=== PATIENT | female | born 1955 | race Caucasian/White ===

== ENCOUNTER → 2021-10-06 | Outpatient (CLI) | payer OTHER ==
[2021-10-06 18:57] LABS: Anion Gap 13.3 mmol/L (10.00-18.00); Carbon Dioxide 23.1 mmol/L (20.0-27.5); Potassium 3.9 mmol/L (3.5-5.5)
[2021-10-06 19:02] LABS: Basophils # (A) 0.04 X 10*3/uL (0.00-0.10); Basophils % (A) 0.5 %; Eosinophils # (A) 0.09 X 10*3/uL (0.04-0.35); Eosinophils % (A) 1.1 %; HCT 42.8 % (37.2-46.3); HGB 14.1 g/dL (12.0-15.0); Lymphocytes # (A) 1.86 X 10*3/uL (0.90-5.00); Lymphocytes % (A) 23.5 %; MCH 32.7 pg (27.0-32.0); MCHC 32.9 g/dL (32.0-37.0); MCV 99.3 fL (80.0-97.0); Mean Platelet Volume 10.7 fL (9.5-12.2); Monocytes # (A) 0.69 X 10*3/uL (0.20-1.00); Monocytes % (A) 8.7 %; Neutrophils # (A) 5.21 X 10*3/uL (1.80-7.70); Neutrophils % (A) 65.8 %; Platelet Count 347 X 10*3/uL (140-440); RBC 4.31 X 10*6/uL (4.10-5.20); RDW 12.7 % (11.5-14.5); WBC 7.92 X 10*3/uL (4.50-10.00)
== END | disposition home or self-care (01) ==
LOC: LABPAT 10:45
PROVIDERS: ATTEND Orthopaedic Surgery Hand Surgery
DX: Z01.812 Encounter for preprocedural laboratory examination (principal); S52.501A Unspecified fracture of the lower end of right radius, initial encounter for closed fracture; Y99.9 Unspecified external cause status
CPT/HCPCS: 36415; 80051; 85025; 93005

== ENCOUNTER → 2021-10-08 | Day surgery (SDC) | payer OTHER ==
[2021-10-07 09:56] VITALS: BMI 24.7
--- NOTE | 2021-10-07 13:12 | P.HPOR ---
History of Present Illness H&P Date: 10/07/21 Chief Complaint: Right distal radius fracture, displaced Age: 66 year Height: 5' Weight: 130 lbs BMI: 25.39 kg/m2 Subjective: This is a 66 year old female that presents today for initial evaluation regarding a right wrist injury that occurred on 10/02/21. She was bowling and slipped and fell on her right wrist. She was seen at an urgent care and placed in a splint. She denies any prior injury to this extremity in the past. She denies any paresthesias. Physical Examination: RUE: AIN/PIN/Radial/Ulnar/Median motor intact. Radial/Ulnar/Median SILT. 2+/4 Radial/Ulnar pulses palpated. 5/5 APB, 5/5 FDI. Bruising, swelling visual deformity of wrist with TTP over distal radius. Imaging: X-Rays of the right wrist demonstrate a displaced intra-articular distal radius fracture with 20 degrees of dorsal angulation and 20% dorsal displacement with loss of volar tilt and radial height. Impression: 1.) Right intra-articular distal radius fracture Plan: Diagnosis and treatment options were discussed with the patient. Due to the displacement and angulation of her fracture pattern on todays exam I recommend surgical intervention in the form of open reduction internal fixation of her right intra-articular distal radius fracture. Risks and benefits of surgery were discussed with the patient including bleeding, damage to surrounding ti ssue, need for further surgery, possible need for hardware removal. The patient wished to go forward with surgery. Preoperative labs and EKG will be obtained and she will be scheduled for surgical intervention in the near future. She is placed in a removable wrist splint that she is to wear until her day of surgery and is to rest, ice and elevate the right upper extremity and to be nonweightbe aring. -Surinder Tejeda DO Orthopedic Hand/Upper Extremity Surgeon Past Medical History Past Medical History: No Reported History Additional Past Medical History / Comment(s): FRACTURED RIGHT WRIST History of Any Multi-Drug Resistant Organisms: None Reported Past Surgical History: Tonsillectomy, Tubal Ligation Past Anesthesia/Blood Transfusion Reactions: No Reported Reaction Smoking Status: Current every day smoker - Past Family History Mother Family Medical History: No Reported History Medications and Allergies Home Medications Medication Instructions Recorded Confirmed Type Brimonidine Tartrate/Timolol 1 drop BOTH EYES BID 10/07/21 10/07/21 History [Combigan 0.2%-0.5% Eye Drops] HYDROcodone/APAP 5-325MG [[place] 1 tab PO Q6HR PRN 10/07/21 10/07/21 History 5-325] Latanoprost/Pf [Latanoprost 0.005% 1 drop BOTH EYES HS 10/07/21 10/07/21 History Eye Drop] Allergies Allergy/AdvReac Type Severity Reaction Status Date / Time No Known Allergies Allergy Verified 10/07/21 09:14 Physical Examination Osteopathic Statement: *. No significant issues noted on an osteopathic structural exam other than those noted in the History and Physical/Consult.
[~2021-10-08] MED LIST: DEXAMETHASONE SOD PHOSPHATE 10 MG/ML 1 ML VIAL ONE; DEXAMETHASONE SOD PHOSPHATE 4 MG/ML 1 ML VIAL IV ONE; HYDROmorphone 0.5 MG/0.5 ML SYRINGE IVP PRN; KETAMINE 10 MG/ML 20 ML VIAL ONE; LACTATED RINGERS 1,000 ML IV SCH; LIDOCAINE 1% (10MG/ML) FOR IV START INTRADERMA ONE; MIDAZOLAM 2 MG/2 ML VIAL IVP ONE; MIDAZOLAM 2 MG/2 ML VIAL ONE; ONDANSETRON 4 MG/2 ML VIAL IVP ONE; PROPOFOL 10 MG/ML 20 ML VIAL IV ONE; ROPIVACAINE 5 MG/ML 30 ML VIAL ONE; fentaNYL (PF) 50 MCG/ML 2 ML AMP IVP ONE; fentaNYL (PF) 50 MCG/ML 2 ML AMP ONE
--- NOTE | 2021-10-08 11:04 | P.ANPRN ---
Procedure Note - Anesthesia - Nerve Block Performed Right Supraclavicular Single Time Out Performed: Yes Date of Procedure: 10/08/21 Procedure Start Time: : Procedure Stop Time: :10 Location of Patient: PreOp Indication: Requested by Surgeon Specifically requested for management of pain by DrAmbrose: Surinder Tejeda Sedation Type: Sedate with meaningful contact maintained Preparation: Sterile Prep Position: Supine Needle Types: Pajunk Needle Gauge: 21 Ultrasound used to visualize needle placement: Yes Ultrasound used to observe medication spread: Yes Injectate: 0.5% Ropivacaine (see comment for volume) (20 ml + dexamethason 10 mg) Blood Aspirated: No Pain Paresthesia on Injection Noted: No Resistance on Injection: Normal Image Stored and Saved: Yes Events: Uneventful and Well Tolerated
[2021-10-08 11:32] VITALS: TEMP 97.2
[2021-10-08 13:03] VITALS: RESP 18
[2021-10-08 13:04] VITALS: BP 122/82; PULSE 67
--- NOTE | 2021-10-08 18:19 | P.OP ---
Date of Procedure: 10/08/21 Preoperative Diagnosis: Right intra-articular distal radius fracture, displaced. Postoperative Diagnosis: Same Procedure(s) Performed: Open reduction internal fixation of right intra-articular distal radius fracture, 3 part. Implants: Luann/Biomet DVR crosslock volar distal radius locking plate, short narrow. Anesthesia: regional Surgeon: Surinder Tejeda Estimated Blood Loss (ml): 5 Pathology: none sent Condition: stable Disposition: PACU Description of Procedure: This is a 66 year old female who sustained a displaced intra-articular distal radius fracture and presents today for open reduction internal fixation of their right distal radius fracture. Risks and benefits of surgery were discussed with the patient including bleeding, damage to surrounding tissue, infection, need for further surgery as well as risks of anesthesia including pulmonary embolism and even and the patient wished to proceed with surgical intervention. The patients was seen in the pre-operative area by myself. Consent and H&P were completed and updated. The correct extremity was marked in the pre-operative area by myself and all other questions were answered. Operative Narrative: The patient was brought to the operating room by the department of anesthesia. They remained on the portable stretcher and a rolling hand table was brought to the side of the operative extremity. Pre-operative time out was performed indicating the correct patient, procedure and laterality. All in the room agreed. Pre-operative antibiotics were given prior to skin incision. The patient was then drifted off to sleep by the department of anesthesia. A nonsterile tourniquet was then applied to the operative extremity and the right upper extremity was then prepped and draped in normal sterile fashion. The operative extremity was the exsanguinated with an esmarch bandage and the tourniquet was inflated to 250mmHg. A longitudinal incision centered over the FCR tendon was made with a 15-blade scalpel. Blunt dissection was taken down to the FCR tendon sheath using Bovie cautery for meticulous hemostasis. The FCR sheath was opened with tenotomy scissors. The floor of the FCR sheath was then incised with a 15-blade scalpel and the FPL tendon and muscle belly was swept bluntly in an ulnar direction to reveal the pronator quadratus. Pronator quadratus was sharply incised with a 15-blade scalpel along the radial border of the distal radius, coming across transversely parallel to the joint at the level of the watershed line, radial artery was identified and protected. Periosteal elevator was then used to elevate the pronator quadratus off the distal radius from a radial to ulnar fashion. Direct visualization of the 3 part fracture was visualized consisting of a radial styloid fragment with radial and dorsal comminution present. A [place] elevator was used to lever the distal piece back into place and free up the fractured fragments. A short/narrow width Luann/biomet crosslock DVR plate was chosen to fit the patients anatomy best. This was placed on the distal radius under direct visualization and the K- wire was placed in the shaft k-wire hole. The fracture was then reduced to the plate distally and a k-wire was placed in the ulnar most k-wire hole in the proximal row. Fluoroscopy was then utilized to confirm correct placement of plate in the radial/ulnar plane and distal k-wire placement was confirmed to be proximal to the subchondral bone on 20 degree elevated lateral view confirming extra-articular screw placement. Amish of radial height, inclination and volar tilt was achieved. The oblong hole was dril led and filled with a cortical screw. The proximal row and radial styloid screw hole was then drilled and filled from ulnar to radial with locking screws. Distal row was then drilled and filled with locking smooth pegs. Attention was then brought to the proximal shaft screws. Proximal crosslocking shaft screws were drilled with a nonlocking screws. The wrist joint was the ranged and full smooth flexion/extension with no crepitus appreciated. Final imaging was taken confirming extra-articular placement of distal screws at DRUJ and radiocarpal joint. The wound was then irrigated. Subcutaneous closure was performed with 3-0 vicryl followed by skin closure with 4-0 nylon suture. Sterile dressing consisting of adaptic, 4x4s, and a volar plaster splint was applied. Tourniquet was let down and the hand had immediate perfusion. The patient was then woken by the department of anesthesia and transferred to PACU in stable condition. The patient was then woken by the department of anesthesia and transferred to PACU in stable condition. Surinder Tejeda D.O. Orthopedic Hand/Upper Extremity Surgeon
== END | disposition home or self-care (01) ==
LOC: OR 07:47
PROVIDERS: ATTEND Orthopaedic Surgery Hand Surgery
DX: S52.571A Other intraarticular fracture of lower end of right radius, initial encounter for closed fracture (principal); W01.0XXA Fall on same level from slipping, tripping and stumbling without subsequent striking against object, initial encounter; Y93.54 Activity, bowling; Z98.51 Tubal ligation status; Z98.890 Other specified postprocedural states; F17.200 Nicotine dependence, unspecified, uncomplicated; Z79.899 Other long term (current) drug therapy; Z79.891 Long term (current) use of opiate analgesic
CPT/HCPCS: 25609; C1713; J2250; J1100 ×2; J2405; J0690; J3010; J2795; J2704

== ENCOUNTER → 2022-05-21 | Outpatient (CLI) | payer MEDICARE, OTHER ==
--- NOTE | 2022-05-21 11:58 | BD ---
EXAMINATION TYPE: Axial Bone Density DATE OF EXAM: 05/21/2022 COMPARISON: NONE CLINICAL HISTORY: 67 year old Female. ICD-10 CODE: Z780 POST KALANI WITHOUT HRT Height: 61 Weight: 128.9 FRAX RISK QUESTIONS: Alcohol (3 or more units per day): no Family History (Parent hip fracture): no Glucocorticoids (More than 3mos): no (Ex: prednisone, prednisolone, methylprednisolone, dexamethasone, and hydrocortisone). History of Fracture in Adulthood: yes Secondary Osteoporosis: 1. Type 1 Diabetes: no 2. Hyperthyroidism: no 3. Menopause before 45: no 4. Malnutrition: no 5. Chronic liver disease: no Rheumatoid Arthritis: no Current Tobacco Use: yes RISK FACTORS HISTORY OF: History of Wrist Fracture: right wrist When: Surgery to Spine/Hip(right/left)/Wrist (right/left): no Family History of Osteoporosis: no Active: yes Diet low in dairy products/other sources of calcium: yes Postmenopausal woman: yes Lost more than 2 inches in height since high school: no MEDICATIONS: Additional History: EXAM MEASUREMENTS: Bone mineral densitometry was performed using the [employer] System. Bone mineral density as measured about the Lumbar spine is: ----- L1-L4(G/cm2): 0.813 T Score Values are as follows: ----- L1: -2.5 ----- L2: -3.4 ----- L3: -3.6 ----- L4: -2.8 ----- L1-L4: -3.1 Bone mineral density : baseline Bone mineral density about the R hip (g/cm2): 0.642 Bone mineral density about the L hip (g/cm2): 0.705 T Score values are as follows: -----R Neck: -2.8 -----L Neck: -2.4 -----R Total: -3.6 -----L Total: -3.2 Bone mineral density : baseline FRAX%s: The graph provided illustrates a 27.3% chance for a major osteoporotic fx and a 11.3% chance for the hips probability for fx in 10 years time. IMPRESSION: Osteoporosis (T Score less than -2.5). There is increased fracture risk and therapy is usually indicated based on age. Re-Screen 1-2 years. NOTE: T-SCORE=SD OF THE YOUNG ADULT MEAN.
--- NOTE | 2022-05-22 19:08 | MM ---
Reason for Exam: Screening (asymptomatic). Patient History: Menarche at age 14. First Full-Term at age 22. Postmenopausal. Risk Values: Lupis 5 year model risk: 1.5%. NCI Lifetime model risk: 5.6%. Tissue Density: There are scattered fibroglandular densities. Findings: Analyzed By CAD. Right breast upper-outer quadrant intramammary lymph node. There is no suspicious group of microcalcifications or new suspicious mass in either breast. Overall Assessment: Benign, BI-RAD 2 Management: Screening Mammogram of both breasts in 1 year. A clinical breast exam by your physician is recommended on an annual basis and results should be correlated with mammographic findings. Electronically signed and approved by: Prosper Pratt DO
== END | disposition home or self-care (01) ==
LOC: RADBDWWP 09:18
PROVIDERS: ATTEND Family Medicine
DX: Z12.31 Encounter for screening mammogram for malignant neoplasm of breast (principal); M81.0 Age-related osteoporosis without current pathological fracture; Z78.0 Asymptomatic menopausal state
CPT/HCPCS: 77063; 77067; 77080

== ENCOUNTER → 2022-07-07 | Outpatient (CLI) | payer MEDICARE, OTHER ==
--- NOTE | 2022-07-07 11:46 | CTL ---
EXAMINATION TYPE: CT Low Dose Lung DATE OF EXAM ORDERED: 07/07/2022 HISTORY: Long-term tobacco use. Lung cancer screening CT DLP: [address] CTDI: 1.9 mGy Automated exposure control for dose reduction was used. SCREENING VISIT: Baseline COMPARISON: None TECHNIQUE: Low dose computed tomography scan was performed through the chest at 1 mm thick sections a nd reconstructed images in multiple planes at 1 mm and [address] DIAGNOSTIC QUALITY: Satisfactory FINDINGS: LUNG NODULES: Present, detailed below: Occasional scattered small nodule. For reference, eThere is 5 x 3 mm medial left upper lobe nodule ax ial image 51. There is 5 mm groundglass nodule right upper lobe axial image 121. No suspicious greate r than 5 mm pulmonary nodules. LUNGS: COPD: Severity: None Fibrosis: Severity: None Lymph nodes: None Other findings: None RIGHT PLEURAL SPACE: Effusion: None Calcification: None Thickening: None Pneumothorax: None LEFT PLEURAL SPACE: Effusion: None Calcification: None Thickening: None Pneumothorax: None HEART: Heart Size: Normal Coronary Calcification: Moderate proximal LAD Pericardial Effusion: None OTHER FINDINGS: Upper abdomen: None Bony thorax: Slight scoliotic curvature Supraclavicular region: None Other: None IMPRESSION: A few scattered small nodules. No significant greater than 5 to [address] LUNG RAD AND CT CHEST RECOMMENDATION: Lung-Rad 2 Benign Appearance or Behavior: Continue annual sc reening with LDCT in 12 months. S Modifier (other clinically significant findings): None
== END | disposition home or self-care (01) ==
LOC: RADCTMAIN 10:55
PROVIDERS: ATTEND Family Medicine
DX: Z12.2 Encounter for screening for malignant neoplasm of respiratory organs (principal); R91.8 Other nonspecific abnormal finding of lung field; Z87.891 Personal history of nicotine dependence
CPT/HCPCS: 71271

== ENCOUNTER → 2023-09-17 | Outpatient (CLI) | payer MEDICARE, OTHER ==
--- NOTE | 2023-09-18 23:34 | CTL ---
EXAMINATION TYPE: CT Low Dose Lung DATE OF EXAM ORDERED: 09/17/2023 HISTORY: Long-term tobacco use. Lung cancer screening CT DLP: 72.[address] CTDI: 1.8 mGy Automated exposure control for dose reduction was used. SCREENING VISIT: First after baseline COMPARISON: Prior study July 07, 2022 TECHNIQUE: Low dose computed tomography scan was performed through the chest at 1 mm thick sections a nd reconstructed images in multiple planes at 1 mm and [address] DIAGNOSTIC QUALITY: Satisfactory FINDINGS: FINDINGS: LUNG NODULES: Present, detailed below: Occasional scattered small nodule redemonstrated. For reference, There is stable 5 x 3 mm medial left upper lobe nodule axial image 73. There is stable 4 mm groundglass nodule right upper lobe axial aidee ge 145. No suspicious new or enlarging greater than 5 mm pulmonary nodules. LUNGS: COPD: Severity: None Fibrosis: Severity: None Lymph nodes: None Other findings: None RIGHT PLEURAL SPACE: Effusion: None Calcification: None Thickening: None Pneumothorax: None LEFT PLEURAL SPACE: Effusion: None Calcification: None Thickening: None Pneumothorax: None HEART: Heart Size: Normal Coronary Calcification: Mild to Moderate proximal LAD Pericardial Effusion: None OTHER FINDINGS: Upper abdomen: None Bony thorax: None Supraclavicular region: None Other: None IMPRESSION: A few scattered small nodules are stable. No significant New or enlarging greater than 5 to [address] LUNG RAD AND [address] CHEST RECOMMENDATION: Lung-Rad 2 Benign Appearance or Behavior: Continue annual sc reening with LDCT in 12 months. S Modifier (other clinically significant findings): None
--- NOTE | 2023-09-21 10:22 | MM ---
Reason for Exam: Screening (asymptomatic). Last mammogram was performed 1 year(s) and 4 month(s) ago. Patient History: Menarche at age 14. First Full-Term at age 22. Postmenopausal. Risk Values: Lupis 5 year model risk: 1.5%. NCI Lifetime model risk: 5.4%. Prior Study Comparison: 05/21/2022 Bilateral MG 3D screening mammo w/cad, [facility]. Tissue Density: There are scattered fibroglandular densities. Findings: Analyzed By CAD. Right breast biopsy clip. There is no suspicious group of microcalcifications or new suspicious mass. Benign-appearing calcifications bilaterally. Overall Assessment: Benign, BI-RAD 2 Management: Screening Mammogram of both breasts in [address] [facility] will attempt to contact patient to return for supplemental views and ultrasound if indicated. Patient should continue monthly self-breast exams. A clinical breast exam by your physician is recommended on an annual basis. This exam should not preclude additional follow-up of suspicious palpable abnormalities. Note on Lupis scores and lifetime risk: 1. A Lupis score greater than 3% is considered moderate risk. If this is the case, consider specialist referral to assess eligibility for a risk reducing agent. 2. If overall lifetime risk for the development of breast cancer is 20% or higher, the patient may qualify for future screening with alternating mammogram and breast MRI. Electronically signed and approved by: Prosper Pratt DO
== END | disposition home or self-care (01) ==
LOC: RADMAMWWP 14:41
PROVIDERS: ATTEND Family Medicine
DX: Z12.31 Encounter for screening mammogram for malignant neoplasm of breast (principal); R91.8 Other nonspecific abnormal finding of lung field; Z87.891 Personal history of nicotine dependence; Z78.0 Asymptomatic menopausal state
CPT/HCPCS: 71271; 77063; 77067

== ENCOUNTER → 2024-11-24 | Outpatient (CLI) | payer MEDICARE, OTHER ==
--- NOTE | 2024-11-24 10:33 | CTL ---
EXAMINATION TYPE: CT Low Dose Lung DATE OF EXAM: 11/24/2024 10:20 AM COMPARISON: 09/17/2023 CLINICAL INDICATION: Female, 69 years old with history of Z12.2 SCREENING, HISTORY OF SMOKER, History of tobacco use. TECHNIQUE: Low Dose CT Lung Screening, Low dose computed tomography scan was performed through the est at 1 millimeter thick sections and reconstructed images in the coronal plane at 1 mm thick sectio ns. IV CONTRAST USED: None. SCREENING VISIT: First visit CT DLP: 59 mGycm, Automated exposure control for dose reduction was used. CT CTDI: 1.64 mGy FINDINGS: CT DIAGNOSTIC QUALITY: Satisfactory LUNG NODULES: There are few scattered sub-5 mm nodule seen unchanged from prior study. LUNGS: COPD: Severity: Mild Fibrosis: Severity:None Lymph nodes: None Other findings: None RIGHT PLEURAL SPACE: Effusion: None Calcification: None Thickening: None Pneumothorax: None LEFT PLEURAL SPACE: Effusion: None Calcification: None Thickening: None Pneumothorax: None HEART: * Size within normal limits. * No significant coronary artery calcifications. OTHER FINDINGS: Upper abdomen: No significant abnormality Bony thorax: Degenerative changes Supraclavicular region: No significant abnormalityOther: No significant abnormalityI IMPRESSION: 1. No clinically significant pulmonary nodules. 2. Mild emphysema. CT LUNG RAD AND CT CHEST RECOMMENDATION: Lung-Rad 2 Benign Appearance or Behavior: Continue annual sc reening with LDCT in 12 months. S Modifier (other clinically significant findings): [facility], , 11/24/2024 10:31 AM
--- NOTE | 2024-11-24 11:09 | MM ---
Reason for Exam: Screening (asymptomatic). Last mammogram was performed 1 year(s) and 2 month(s) ago. Patient History: Menarche at age 14. First Full-Term at age 22. Postmenopausal. Risk Values: Lupis 5 year model risk: 1.5%. NCI Lifetime model risk: 5.2%. Prior Study Comparison: 05/21/2022 Bilateral MG 3D screening mammo w/cad, [facility]. 09/17/2023 Bilateral MG 3D screening mammo w/cad, [facility]. Tissue Density: There are scattered areas of fibroglandular density. Findings: Analyzed By CAD. Mammotome biopsy clip in the right breast is redemonstrated. There are few scattered benign-appearing round dystrophic calcifications bilaterally redemonstrated. Stable 5 mm circumscribed mass in the upper-outer aspect right breast. There is no suspicious new group of microcalcifications or new suspicious mass in either breast. Overall Assessment: Benign, BI-RAD 2 Management: Screening Mammogram of both breasts in 1 year. . Patient should continue monthly self-breast exams. A clinical breast exam by your physician is recommended on an annual basis. This exam should not preclude additional follow-up of suspicious palpable abnormalities. Note on Lupis scores and lifetime risk: 1. A Lupis score greater than 3% is considered moderate risk. If this is the case, consider specialist referral to assess eligibility for a risk reducing agent. 2. If overall lifetime risk for the development of breast cancer is 20% or higher, the patient may qualify for future screening with alternating mammogram and breast MRI. [facility], , 11/24/2024 11:06 AM. Electronically signed and approved by: Adi Motta M.D.
== END | disposition home or self-care (01) ==
LOC: RADMAMWWP 09:15
PROVIDERS: ATTEND Family Medicine
DX: Z12.2 Encounter for screening for malignant neoplasm of respiratory organs (principal); R92.323 Mammographic fibroglandular density, bilateral breasts; J43.9 Emphysema, unspecified; Z12.31 Encounter for screening mammogram for malignant neoplasm of breast; Z78.0 Asymptomatic menopausal state; Z87.891 Personal history of nicotine dependence
CPT/HCPCS: 71271; 77063; 77067

== ENCOUNTER → 2024-12-27 | Outpatient (CLI) | payer MEDICARE, OTHER ==
--- NOTE | 2024-12-27 14:31 | BD ---
EXAMINATION TYPE: Axial Bone Density DATE OF EXAM: 12/27/2024 CLINICAL HISTORY: 69 years old Female. ICD-10 CODE: M81.0 KNOWN OSTEOPOROSIS , Additional History: Height: 59.5 in Weight: 131 lbs FRAX RISK QUESTIONS: History of Fracture in Adulthood: rt wrist age 66 Secondary Osteoporosis: 2. Hyperthyroidism: yes HISTORY OF: History of Wrist Fracture: yes rt age 66 Surgery to Wrist (right): age 66 rt MEDICATIONS: Osteoporosis Medications: yes Which medication: Other alendronate sodium How Lon years EXAM MEASUREMENTS: Bone mineral densitometry was performed using the [employer] System. Bone mineral density as measured about the Lumbar spine is: ----- L1-L4(G/cm2): 0.923 T Score Values are as follows: ----- L1: -1.3 ----- L2: -2.6 ----- L3: -2.7 ----- L4: -2.1 ----- L1-L4: -2.1 Z Score Values are as follows: ----- L1: 0.5 ----- L2: -0.8 ----- L3: -0.9 ----- L4: -0.3 ----- L1-L4: -0.3 Bone mineral density has: Increased 13.5% since study of: 05/21/2022 Bone mineral density about the R hip (g/cm2): 0.618 Bone mineral density about the L hip (g/cm2): 0.642 T Score values are as follows: -----R Neck: -2.5 -----L Neck: -2.1 -----R Total: -3.1 -----L Total: -2.9 Z Score values are as follows: -----R Neck: -0.8 -----L Neck: -0.4 -----R Total: -1.6 -----L Total: -1.4 Bone mineral density has: Increased 9.4% since study of: 05/21/2022 FRAX%s: The graph provided illustrates a 23.0% chance for a major osteoporotic fx and a 5.5% chance f or the hips probability for fx in 10 years time. IMPRESSION: Osteoporosis (T Score less than -2.5). There is increased fracture risk and therapy is usually indicated based on age. Re-Screen 1-2 years. NOTE: T-SCORE=SD OF THE YOUNG ADULT MEAN. [facility], , 12/27/2024 2:29 PM
== END | disposition home or self-care (01) ==
LOC: RADBDWWP 12:26
PROVIDERS: ATTEND Family Medicine
DX: M81.0 Age-related osteoporosis without current pathological fracture (principal); M85.89 Other specified disorders of bone density and structure, multiple sites
CPT/HCPCS: 77080

== ENCOUNTER → 2025-02-13 | Outpatient (CLI) | payer MEDICARE ==
[2025-02-13] MEDS: DENOSUMAB 60 MG/ML 1 ML SYRINGE SQ NR (12:20)
[2025-02-13 12:24] VITALS: BP 150/89; PULSE 89; RESP 16; TEMP 98
== END ==
LOC: PROCWHC3 12:04
PROVIDERS: ATTEND Family Medicine
DX: M81.0 Age-related osteoporosis without current pathological fracture (principal)
CPT/HCPCS: 96372; J0897